=== PATIENT | male | born 1990 | race Caucasian/White ===

== ENCOUNTER 2016-09-28 22:12 | Emergency (ER) | payer OTHER ==
[2016-09-28 22:47] LABS: BASOPHILS 0.2 %; BASOPHILS ABSOLUTE 0.02 10/3/uL (0.0-0.16); EOSINOPHILS 1.2 %; EOSINOPHILS ABSOLUTE 0.14 10/3/uL (0.0-0.53); HEMATOCRIT 40.7 % (40.0-51.0); HEMOGLOBIN 13.9 g/dL (13.6-17.8); IMMATURE GRANULOCYTES 0.7 %; LYMPHOCYTES 45.1 %; LYMPHOCYTES ABSOLUTE 5.22 10/3/uL (0.67-4.30); MEAN CORPUS HGB CONC 34.2 g/dL (32.0-36.0); MEAN CORPUSCULAR HEMOGLOB 30.4 pg (26.0-34.0); MEAN CORPUSCULAR VOLUME 89.1 fL (80-100); MEAN PLATELET VOLUME 9.4 fL (9.2-13.0); MONOCYTES 11.7 %; MONOCYTES ABSOLUTE 1.36 10/3/uL (0.21-1.20); NEUTROPHILS 41.1 %; NEUTROPHILS ABSOLUTE 4.76 10/3/uL (2.02-8.40); PLATELET COUNT 180 10/3/uL (150-400); RBC DISTRIBUTION WIDTH 12.5 % (12.0-16.0); RED CELL COUNT 4.57 10/6/uL (4.7-6.1); WHITE BLOOD CELLS 11.6 10/3/uL (4.5-10.5)
[2016-09-28 22:48] LABS: IMMATURE GRANULOCYTES ABSOLUTE 0.08 10/3/uL (0.0-0.11); MANUAL DIFF NO %
[2016-09-28 22:55] LABS: INTERNATIONAL NORMAL RATI 0.9 UNITS (-); PROTIME (NOT ORD) 12.4 SEC (12.0-14.5)
[2016-09-28 23:06] LABS: BUN (BLOOD UREA NITROGEN) 20 MG/DL (6-23); CALCIUM, SERUM 8.3 MG/DL (8.5-10.4); CHEST PAIN PROFILE TAT 0 Hrs 23 Mins; CHLORIDE, SERUM 107 MMOL/L (96-112); CO2 (CARBON DIOXIDE) 32 MMOL/L (24-34); CREATININE 1.09 MG/DL (0.70-1.30); GFR AFRICAN AMERICAN 106 ML/MIN (>=60); GFR NON AFRICAN AMERICAN 92 ML/MIN (>=60); GLUCOSE, SERUM 104 MG/DL (60-99); POTASSIUM, SERUM 3.4 MMOL/L (3.5-5.3); SODIUM, SERUM 144 MMOL/L (135-148); TROPONIN I <0.02 NG/ML (<0.05)
[2016-09-28 23:07] LABS: EOSINOPHILS 2 %; EOSINOPHILS ABSOLUTE (CALC) 0.23 10/3/uL (0.0-0.53); ER DIFF TAT 0 Hrs 24 Mins; LYMPHOCYTES 44 %; MONOCYTES 6 %; NEUTROPHILS ABSOLUTE (CALC) 5.57 10/3/uL (2.02-8.40); PLATELET ESTIMATE ADQ (ADEQUATE); RBC MORPHOLOGY NORM (NORMAL); SEGMENTED NEUTROPHIL (0) 48 %; TOTAL NUCLEATED CELLS 100
[2016-09-29 02:06] LABS: D-DIMER QUANTITATIVE < 0.27 ug/mLFEU (< 0.50)
[2016-09-29] MEDS ORDERED: *DENIES (18:41)
== END 2016-09-29 03:01 | disposition home or self-care (01) ==
LOC: ER 22:12
PROVIDERS: Emergency Medicine
DX: R55 Syncope and collapse (principal); Z88.0 Allergy status to penicillin; Z88.1 Allergy status to other antibiotic agents; Z88.8 Allergy status to other drugs, medicaments and biological substances
CPT/HCPCS: 71020; 80048; 83735; 84484; 85025; 85379; 85610; 85730; 93005; 93225; 99285; A9270-GY

== ENCOUNTER 2016-09-29 19:01 | Observation (INO) | payer OTHER ==
--- NOTE | ~2016-09-29 | CN ---
Consultation Report [facility] [address] [place]. [address] NAME: JAKE SLAUGHTER : 86 STATUS : ADM Nel PAT#: [id number] AGE: 26 ADM/REG DATE : 09/29/16 MR#: [id number] REPORT SERV DATE: 09/30/16 DICTATED BY: DATE: REPORT STATUS : Draft TRANSCRIBED BY: MODL DATE: 09/29/16 DATE OF CONSULTATION: 09/29/2016 CHIEF COMPLAINT/REASON FOR CONSULTATION: Syncope and palpitations. 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 He was evaluated and released from the emergency department with a Holter monitor. The patient states that he had an allergic reaction to either poison genaro or poison oak when weed eating and approximately five days prior to admission was given an injection of steroids and then placed on 80 mg of prednisone per day. He states that approximately three days after this started, he had episode where his heart was racing, he was driving and he pulled over. He did not pass out at that time, but he felt like he might pass out. It lasted approximately one minute. Then on Thursday evening, he had episodes of lightheadedness and heart racing. 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 He had a few palpitations while he was speaking and then after the service, he actually felt his heart racing. He passed out, lost consciousness, and was picked up off the floor. Some baptist members attended to him and stated that he was clammy at that time, and he states that his pulse was checked and it was normal at that time. The patient was seen in the emergency department and released and then went home today and had another episode while he was seated in front of his computer. It was unwitnessed. It occurred approximately between 3:30 and 4 p.m. this afternoon. Associated with the palpitations are chest pain which he describes anywhere from three to eight out of ten in intensity. It feels like a soreness in the middle of his chest and radiates to both arms and is associated with a headache. Incidentally, the patient notes that he did have an episode of passing out once at the age of 15. PAST MEDICAL HISTORY: 1. Asthma. ALLERGIES: 1. PENICILLIN. 2. CECLOR. 3. CLAVULANIC ACID. 4. AUGMENTIN. 5. AMOXICILLIN. SOCIAL HISTORY: The patient is . He does not smoke, drink, or use extracurricular drugs. FAMILY HISTORY: Significant for father who had a myocardial infarction in his 60s and an Consultation Report [facility] [address] [place]. [address] NAME: JAKE SLAUGHTER : 86 STATUS : ADM Nel PAT#: [id number] AGE: 26 ADM/REG DATE : 09/29/16 MR#: [id number] REPORT SERV DATE: 09/30/16 DICTATED BY: DATE: REPORT STATUS : Draft TRANSCRIBED BY: MODL DATE: 09/29/16 uncle who had a myocardial infarction in his 40s. REVIEW OF SYSTEMS: All systems were reviewed and is negative except for dictated in the HPI. PHYSICAL EXAMINATION: VITAL SIGNS: Blood pressure in the emergency department was 115/70, temperature 97.8, pulse 71, respirations 16, and oxygen saturations 99% on room air. GENERAL: Mr. Slaughter is a well groomed 26-year-old gentleman. He is in no distress. NECK: No jugular venous distention. No carotid bruits. HEART: Regular rate and rhythm. Normal S1 and S2. No murmurs, rubs, or gallops auscultated. LUNGS: Clear to auscultation in all crouch. ABDOMEN: Soft and nontender. No renal bruits are auscultated. Femoral pulses +2 bilaterally. There are no femoral bruits. EXTREMITIES: Warm. There is a macular papular rash on the lower extremities bilaterally. There is no lower extremity edema. Posterior tibial pulses are +2 bilaterally. NEUROLOGIC: I could not appreciate any focal neurologic deficits. MUSCULOSKELETAL: No clubbing or cyanosis of the digits. DATA: A CTA of the chest was performed which documented no evidence of pulmonary emboli. There was no mediastinal hemorrhage or abnormal fluid. No chest wall masses. A chest x-ray performed today demonstrated no evidence of cardiopulmonary disease. LABORATORY RESULTS: Demonstrated hemoglobin 14.1, hematocrit of 41, a platelet count of 172. Sodium 142, potassium 3.8, BUN 16, creatinine 0.96. Troponin less than 0.02. Lab results performed yesterday shows similar findings. Cardiac troponin on 09/28/2016 was 0.02. EKG performed on admission demonstrated sinus bradycardia at 59 beats per minute. There is T-wave inversion in lead III. Otherwise, no abnormalities identified. IMPRESSION REPORT AND PLAN: 1. Syncope. 2. Palpitations. 3. Chest pain. RECOMMENDATIONS: 1. I agree with CTA which has been performed and would recommend echocardiogram on 09/30/2016. 2. Nuclear stress test in the a.m. to evaluate for ischemia. 3. Would interrogate Holter monitor. 4. Check orthostatics. 5. Additional recommendations pending clinical course. Consultation Report [facility] [id number] [facility] [place]. [address] NAME: JAKE SLAUGHTER : 86 STATUS : ADM Nel PAT#: [id number] AGE: 26 ADM/REG DATE : 09/29/16 MR#: [id number] REPORT SERV DATE: 09/30/16 DICTATED BY: DATE: REPORT STATUS : Draft TRANSCRIBED BY: OBDULIA DATE: 09/29/16 [facility]/OBDULIA Rachel Marquez M.D. / [id number] CC: Loren Dunn M.D.
--- NOTE | ~2016-09-29 | DS ---
Discharge Summary [facility] [address] [place]. [address] NAME: JAKE CALDERÓN : 86 STATUS : DIS Nel PAT#: [id number] AGE: 26 ADM/REG DATE : 09/29/16 MR#: [id number] REPORT SERV DATE: 09/30/16 DICTATED BY: BETINA MAYER DATE: 09/30/16 REPORT STATUS : Draft TRANSCRIBED BY: OBDULIA DATE: 09/30/16 ADMISSION DATE: 09/29/2016 DISCHARGE DATE: 09/30/2016 DISCHARGE DIAGNOSES: 1. Syncope. 2. Palpitations. 3. Chest pain. DISCHARGE CONDITION: Stable. CONSULTATION: Cardiology, Dr. Marquez. INVASIVE PROCEDURE: None. HISTORY OF PRESENT ILLNESS: For detailed HPI, please make reference to Dr. Suleiman Major's dictation on 09/29/2016. In brief; this is a 26-year-old male with no significant medical history, who presented to the hospital with complaints of recurrent palpitation, chest pain, shortness of breath, and syncopal episodes. Of note, the patient was recently diagnosed with a Poison [place] rash, was started on prednisone prior to the onset of symptoms. Prior to presentation, the patient reported that he took prednisone 80 mg x4 days prior to the onset of palpitation and shortness of breath. He claimed he called his primary care physician who advised him to stop the prednisone. The patient reported that he suddenly discontinued the medication but continued to have palpitation, shortness of breath, and chest pain, hence decided to come to the emergency room for further evaluation. In the ER, vital signs, temperature was 97.8, pulse rate was 77, blood pressure was 115/70, respiratory rate was 16 cycles per minute, and saturating 99% on room air. Physical examination was essentially within normal limits. LABORATORY DATA: Troponin was less than 0.02. Creatinine was 0.96. Chest x-ray shows no acute cardiopulmonary process. CTA of the chest was done in the ER, shows no evidence of acute pulmonary embolus. The patient was admitted to the Hospitalist Service for further evaluation of syncope. The patient had Holter monitor on presentation. This Holter monitor was interrogated during the course of this admission, showed no evidence of cardiac arrhythmias. No evidence of arrhythmias was also noted on the patient's cardiac tele. EKG during the course of this admission showed normal sinus rhythm. The patient underwent an echocardiogram that shows normal EF. Also had a stress test that shows low risk for cardiac ischemia. During the course of this admission, the patient's orthostatic vitals were also checked. The patient's vitals were noted to be stable. The patient did not require any further doses of prednisone for the reported Poison [place] infection of his lower extremities. Prior to discharge, the Discharge Summary [address] [address] NAME: JAKE CALDERÓN : 88 STATUS : DIS Nel PAT#: [id number] AGE: 26 ADM/REG DATE : 09/29/16 MR#: [id number] REPORT SERV DATE: 09/30/16 DICTATED BY: BETINA MAYER DATE: 09/30/16 REPORT STATUS : Draft TRANSCRIBED BY: OBDULIA DATE: 09/30/16 patient had no further episode of shortness of breath, chest pain, or palpitation. The patient was cleared by Cardiology prior to discharge. The patient was advised to continue followup with primary care physician as an outpatient. Definitive etiology of syncope episode may be related to the sudden discontinuation of prednisone. DISCHARGE ACTIVITIES: As tolerated. DISCHARGE FOLLOWUP: 1. To follow up with the primary care physician within one to two weeks of discharge. 2. To follow up with Cardiology within two to three weeks of discharge. Greater than 30 minutes was used to prepare this patient's discharge, reconcile medication, and advising the patient on discharge plans and followup. EDGRAO/OBDULIA Betina Mayer MD / [id number] CC: MD Radhames Bowling M.D.
--- NOTE | ~2016-09-29 | HOLTER ---
Holter Monitor [facility] [address] [facility] [place]. [address] NAME: JAKE CALDERÓN : 86 STATUS : DIS Nel PAT#: [id number] AGE: 26 ADM/REG DATE : 09/29/16 MR#: [id number] REPORT SERV DATE: 10/01/16 DICTATED BY: ERASTO GARDNER DATE: 09/30/16 REPORT STATUS : Draft TRANSCRIBED BY: MODLisa DATE: 09/30/16 48-HOUR HOLTER MONITOR REPORT RESPONSIBLE PROVIDER: Rachel Marquez M.D. INDICATIONS: Palpitations and syncope. RECORDING QUALITY: Adequate. RHYTHM: The baseline rhythm is normal sinus rhythm, which ranges from 41 to 190 beats per minute. The average heart rate is 70 beats per minute. There are no pauses. VENTRICULAR ARRHYTHMIA: There are rare premature ventricular contractions. There are no couplets or runs. SUPRAVENTRICULAR ARRHYTHMIA: There are rare premature atrial contractions. There are no couplets or runs. The heart rate of 190 beats per minute correlates with sinus tachycardia during a stress test. SYMPTOMS: The patient diary was not returned with this study. CONCLUSION: Normal Holter monitor worn for 36 hours, demonstrating sinus rhythm with appropriate heart rate range and normal average heart rates. Minimal premature ventricular contractions and premature atrial contractions are noted. No substrate for syncope identified. Please see attached worksheet for further details. Definitions for premature beat frequency Approximately Rare <100 <0.1 % Occasional 100-1500 0.1 - 1.5 % Frequent >1500 >1.5 % [facility]/OBDULIA Erasto Gardner M.D. / [id number]
--- NOTE | ~2016-09-29 | HP ---
History And Physical [facility] [id number] [facility] [place]. [address] NAME: JAKE CALDERÓN : 86 STATUS : ADM Nel PAT#: [id number] AGE: 26 ADM/REG DATE : 09/29/16 MR#: [id number] REPORT SERV DATE: 09/30/16 DICTATED BY: ALPA FARIAS DATE: 09/29/16 REPORT STATUS : Draft TRANSCRIBED BY: MODL DATE: 09/29/16 DATE OF ADMISSION: 09/29/2016 CHIEF COMPLAINT: A 26-year-old male presenting with recurrent palpitations, chest pain, shortness of breath, and two separate syncopal episodes. HISTORY OF PRESENT ILLNESS: The patient's history was obtained through careful interview with the patient and , coupled with review of [facility] medical records. The patient believes his illness began when he developed severe poison oak of his lower extremities about a week and a half or two weeks ago. He was given an outpatient "shot" of steroids and placed on prednisone, but states that his lower extremity poison oak was so severe that he was "weeping" with serous fluid from his legs and caused excruciating excoriations of the lower extremities. But then on 09/27/2016, he began to develop new-onset palpitations, they are associated with shortness of breath characterized by dyspnea on exertion and chest pain. He had about three or four episodes of palpitations on 09/27/2016. 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 He was able to get through a sermon, but recalls feeling extremely uncomfortable from his palpitations, and at one point, losing his train of thought because of feeling lightheaded. As he had finished up his sermon and was greeting people as they left the voodoo, he had severe palpitations again with chest pain, this time became extremely lightheaded and slumped over, passing out completely for about three or four seconds. He did hit his knees, but people nearby him had caught him before he could fall and hit his head. Afterwards, there was no loss of continence. No biting of the tongue. No seizure activity or convulsions, and he was not particularly confused. He came to the emergency department on 09/28/2016 and had no abnormalities on workup, was placed on a Holter monitor. Today, the patient has been resting, and in fact, he was sitting on his bed working on a laptop when he felt palpitations coming on once again and then the next thing he knew is he was slumped over on the bed and has completely lost consciousness. He believes it was only for a few seconds as the screen had not gone out on his laptop yet. He describes chest discomfort with the palpitations. He describes the quality as "being punched in the chest," up to a 9/10 in severity, one time it caused him to cry, sometimes it radiates into his bilateral arms into his back and up into his head, it is associated with shortness of breath. No lower extremity edema. No upper extremity edema. No fevers or chills. He has had slight nausea, but no vomiting. History And Physical [address] [address] NAME: JAKE CALDERÓN : 86 STATUS : ADM Nel PAT#: [id number] AGE: 26 ADM/REG DATE : 09/29/16 MR#: [id number] REPORT SERV DATE: 09/30/16 DICTATED BY: ALPA FARIAS DATE: 09/29/16 REPORT STATUS : Draft TRANSCRIBED BY: OBDULIA DATE: 09/29/16 He has chronic mild lower back pain, but he does not take any medications for this. REVIEW OF SYSTEMS: Otherwise, a 14-point review of systems was obtained and was negative. PAST MEDICAL HISTORY: Eosinophilic esophagitis and gastritis, seen by Dr. Tsang. PAST SURGICAL HISTORY: 1. Lumbar spine surgery in 2009. 2. Cholecystectomy, when the patient was 12 years old. ALLERGIES: PENICILLIN AND CECLOR. SOCIAL HISTORY: No tobacco abuse. No alcohol abuse. He is , lives in [place], [place]. 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 He has no children. FAMILY HISTORY: Father with coronary artery disease. Uncle with coronary artery disease. Maternal grandfather with coronary artery disease. An uncle with lymphoma. A strong family history of diabetes. CURRENT MEDICATIONS: Denies any. PHYSICAL EXAMINATION: VITAL SIGNS: Temperature 97.8, pulse 71, blood pressure 115/70, respiratory rate 16, and O2 saturation 99% on room air. GENERAL: A pleasant, cooperative male, in no evidence of acute distress. HEENT: Pupils are equal, round, and reactive to light. No conjunctival pallor. No scleral icterus. Nares are patent. Oropharynx is clear of obstruction. Moist mucous membranes. NECK: Trachea midline. No thyromegaly. LYMPH: No cervical lymphadenopathy. No supraclavicular lymphadenopathy. RESPIRATORY: Clear to auscultation at bases. No wheezes, rales, or rhonchi. Normal respiratory effort. CARDIOVASCULAR: Regular rate and rhythm. No murmurs, rubs, or gallops. No current extremity edema is appreciated. ABDOMEN: Soft, nontender, and nondistended. Normal bowel sounds auscultated throughout. No hepatosplenomegaly. DERMATOLOGICAL: Warm and dry extremities. No pallor. No cyanosis. PSYCHIATRIC: Normal affect. Good mood. Alert and oriented x3. LABORATORY DATA: White blood cell count 9.3, hemoglobin 14, hematocrit 41, and platelets 172. Sodium 142, potassium 3.8, chloride 105, bicarb 36, BUN 16, creatinine 0.96, and glucose 88. Urinalysis negative for infection. STUDIES: 1. Chest x-ray by my own evaluation shows no acute cardiopulmonary process. History And Physical [address] [address] NAME: JAKE CALDERÓN : 86 STATUS : ADM Nel PAT#: [id number] AGE: 26 ADM/REG DATE : 09/29/16 MR#: [id number] REPORT SERV DATE: 09/30/16 DICTATED BY: ALPA FARIAS DATE: 09/29/16 REPORT STATUS : Draft TRANSCRIBED BY: MODL DATE: 09/29/16 2. EKG by my own evaluation shows sinus bradycardia. There may be a short NH interval, but it does not show any signs of WPW by my own evaluation. There is a slight Q-wave in the lead I. There is also a T-wave inversion and slight Q and S phenomenon in lead III. ASSESSMENT AND PLAN: 1. Recurrent syncope with palpitations. We will interrogate the Holter monitor. Place on telemetry. Check orthostatics. Obtain a Cardiology consult. Check thyroid, cardiac enzymes. No current neurological signs. 2. Chest pain with a slight Q3-T3 phenomenon and because of the severity of the chest pain shortness of breath and palpitations with syncope, I think is reasonable to check a CT angiogram of the chest to rule out pulmonary embolism. Check an echocardiogram. Place on aspirin. Obtain a Cardiology consult. MARIAELENA/OBDULIA Alpa Farias M.D. / [id number] CC: Loren Dunn M.D.
[2016-09-29 16:04] LABS: BASOPHILS 0.2 %; BASOPHILS ABSOLUTE 0.02 10/3/uL (0.0-0.16); EOSINOPHILS 3.7 %; EOSINOPHILS ABSOLUTE 0.34 10/3/uL (0.0-0.53); ER CBC TAT 0 Hrs 10 Mins; HEMOGLOBIN 14.1 g/dL (13.6-17.8); IMMATURE GRANULOCYTES ABSOLUTE 0.09 10/3/uL (0.0-0.11); LYMPHOCYTES 44.4 %; LYMPHOCYTES ABSOLUTE 4.11 10/3/uL (0.67-4.30); MEAN CORPUS HGB CONC 34.4 g/dL (32.0-36.0); MEAN CORPUSCULAR HEMOGLOB 30.9 pg (26.0-34.0); MEAN CORPUSCULAR VOLUME 89.9 fL (80-100); MEAN PLATELET VOLUME 9.1 fL (9.2-13.0); MONOCYTES 10.5 %; MONOCYTES ABSOLUTE 0.97 10/3/uL (0.21-1.20); NEUTROPHILS 40.2 %; NEUTROPHILS ABSOLUTE 3.73 10/3/uL (2.02-8.40); PLATELET COUNT 172 10/3/uL (150-400); RBC DISTRIBUTION WIDTH 12.7 % (12.0-16.0); RED CELL COUNT 4.56 10/6/uL (4.7-6.1); WHITE BLOOD CELLS 9.3 10/3/uL (4.5-10.5)
[2016-09-29 16:07] LABS: MANUAL DIFF NO %
[2016-09-29 16:13] LABS: ASCORBIC ACID (UR NOT ORDER) NEG (NEG); BILIRUBIN, URINE NEGATIVE (NEG); ER URINALYSIS TAT 0 Hrs 19 Mins; KETONE, URINE NEGATIVE (NEG); LEUKOCYTE ESTERASE(NOT OR NEG (NEG); NITRITE (URINE) NEG (NEG); WBC (NOT ORDERED) (RFLEX) < 1 (0-5)
[2016-09-29 16:17] LABS: PARTIAL THROMBO TIME 27.2 SEC (22.5-37.2); PROTIME (NOT ORD) 13.4 SEC (12.0-14.5)
[2016-09-29 16:21] LABS: BUN (BLOOD UREA NITROGEN) 16 MG/DL (6-23); CALCIUM, SERUM 8.9 MG/DL (8.5-10.4); CHEST PAIN PROFILE TAT 0 Hrs 27 Mins; CHLORIDE, SERUM 105 MMOL/L (96-112); CO2 (CARBON DIOXIDE) 36 MMOL/L (24-34); CREATININE 0.96 MG/DL (0.70-1.30); GFR AFRICAN AMERICAN 124 ML/MIN (>=60); GFR NON AFRICAN AMERICAN 107 ML/MIN (>=60); GLUCOSE, SERUM 88 MG/DL (60-99); POTASSIUM, SERUM 3.8 MMOL/L (3.5-5.3); SODIUM, SERUM 142 MMOL/L (135-148); TROPONIN I <0.02 NG/ML (<0.05)
[~2016-09-29 19:01] MED LIST: *DENIES
[2016-09-29 22:19] LABS: AMPHETAMINES (NOT ORD) NEG (NEG); BARBITURATES (NOT ORDERED NEG (NEG); BENZODIAZEPINES (NOT ORD) NEG (NEG); CANNABINOIDS (THC) NEG (NEG); COCAINE (NOT ORDERED) NEG (NEG); OPIATES NEG (NEG); PHENCYCLIDINE(PCP) NEG (NEG); TRICYCLICS NEG (NEG)
[2016-09-30 04:35] LABS: BASOPHILS 0.4 %; BASOPHILS ABSOLUTE 0.04 10/3/uL (0.0-0.16); EOSINOPHILS 4.8 %; EOSINOPHILS ABSOLUTE 0.46 10/3/uL (0.0-0.53); HEMATOCRIT 42.1 % (40.0-51.0); HEMOGLOBIN 14.6 g/dL (13.6-17.8); IMMATURE GRANULOCYTES 0.8 %; IMMATURE GRANULOCYTES ABSOLUTE 0.08 10/3/uL (0.0-0.11); LYMPHOCYTES 44.5 %; LYMPHOCYTES ABSOLUTE 4.26 10/3/uL (0.67-4.30); MEAN CORPUS HGB CONC 34.7 g/dL (32.0-36.0); MEAN CORPUSCULAR HEMOGLOB 31.4 pg (26.0-34.0); MEAN CORPUSCULAR VOLUME 90.5 fL (80-100); MEAN PLATELET VOLUME 9.3 fL (9.2-13.0); MONOCYTES 9.6 %; MONOCYTES ABSOLUTE 0.92 10/3/uL (0.21-1.20); NEUTROPHILS 39.9 %; NEUTROPHILS ABSOLUTE 3.81 10/3/uL (2.02-8.40); PLATELET COUNT 188 10/3/uL (150-400); RBC DISTRIBUTION WIDTH 12.5 % (12.0-16.0); RED CELL COUNT 4.65 10/6/uL (4.7-6.1); WHITE BLOOD CELLS 9.6 10/3/uL (4.5-10.5)
[2016-09-30 04:37] LABS: MANUAL DIFF NO %
[2016-09-30 04:40] LABS: PARTIAL THROMBO TIME 33.7 SEC (22.5-37.2); PROTIME (NOT ORD) 13.2 SEC (12.0-14.5)
[2016-09-30 04:59] LABS: A/G RATIO 1.3 (0.7-1.9); ALBUMIN 3.4 G/DL (3.5-5.0); ALKALINE PHOSPHATASE 50 U/L (45-117); BUN (BLOOD UREA NITROGEN) 14 MG/DL (6-23); CALCIUM, SERUM 8.3 MG/DL (8.5-10.4); CHLORIDE, SERUM 106 MMOL/L (96-112); CO2 (CARBON DIOXIDE) 32 MMOL/L (24-34); CREATININE 0.85 MG/DL (0.70-1.30); GFR AFRICAN AMERICAN 137 ML/MIN (>=60); GFR NON AFRICAN AMERICAN 119 ML/MIN (>=60); GLOBULIN 2.7 G/DL (2.5-4.1); GLUCOSE, SERUM 104 MG/DL (60-99); POTASSIUM, SERUM 3.9 MMOL/L (3.5-5.3); SGOT(AST) 15 U/L (5-40); SGPT(ALT) 23 U/L (5-65); SODIUM, SERUM 143 MMOL/L (135-148); TOTAL BILIRUBIN 0.4 MG/DL (0-1.2); TOTAL PROTEIN 6.1 G/DL (6.0-8.5); TROPONIN I <0.02 NG/ML (<0.05)
== END 2016-09-30 17:59 | disposition home or self-care (01) ==
LOC: ER 19:01 → 7NO 19:39
PROVIDERS: Hospitalist; Internal Medicine
DX: R55 Syncope and collapse (principal); R00.2 Palpitations; R07.9 Chest pain, unspecified; J45.909 Unspecified asthma, uncomplicated; Z90.49 Acquired absence of other specified parts of digestive tract; Z88.0 Allergy status to penicillin; Z88.1 Allergy status to other antibiotic agents
CPT/HCPCS: 71020; 71275; 78452; 80048; 80053; 80305; 81001; 83735; 83880; 84443; 84484; 85025; 85610; 85730; 93005; 93017; 93226; 93306; 96372; 99285; A9270-GY; A9502; G0378; Q9967